=== PATIENT | female | born 1950 | race American Indian/Alaskan Native ===

== ENCOUNTER 2019-01-21 16:14 | Emergency (ER) | payer BC ==
[2019-01-21 16:23] VITALS: TEMP 98.2; O2SAT 999
--- NOTE | 2019-01-21 16:51 | C.PDOC ---
History Of Present Illness 68yo F with PMH of HTN, back pain here today for elevated blood pressure readings at home. She has been taking her blood pressure at home and got readings in the 190s for the last week. She's been controlling it by taking an extra dose of her clonidine 0.2, per her PMD. However, for the last two days, even with the extra medication, her BP has stayed elevated. Today, her home measurement showed SBP in the 200s so she came in. Denies headache, chest pain, palpitations, abdominal pain, nausea, vomiting, numbness, tingling, dizziness, lightheadedness. She does complain of ongoing sciatic pain on the R, worsening on walking. She is concerned the prolonged pain is raising her blood pressure. She's compliant with her three home meds of clonidine, carvedilol, diltiazem. <Evie Santa - Last Filed: 01/21/19 16:40> Patient seen and examined. Agree with history as documented. <Marina Garza - Last Filed: 01/22/19 01:45> History Per: Patient Onset/Duration Of Symptoms: Days Associated Symptoms: denies: Chest Pain, Dyspnea, Dizziness, Blurred Vision, Focal Weakness, Headache Additional History Per: Family <Evie Santa - Last Filed: 01/21/19 16:40> <Marina Garza - Last Filed: 01/22/19 01:45> Chief Complaint (Nursing): High Blood Pressure Past Medical History Reviewed: Historical Data, Nursing Documentation, Vital Signs Vital Signs: Last Vital Signs Temp 98.2 F 01/21/19 16:21 Pulse 66 01/21/19 16:21 Resp 20 01/21/19 16:21 BP 215/85 H 01/21/19 16:21 Pulse Ox 999 H 01/21/19 16:21 Primary Care Provider: Jacinto Prasad - Medical History PMH: HTN Family History: States: Unknown Family Hx - Social History Hx Tobacco Use: Yes Hx Alcohol Use: No Hx Substance Use: No - Immunization History Hx Tetanus Toxoid Vaccination: No Hx Influenza Vaccination: No Hx Pneumococcal Vaccination: No <Evie Santa - Last Filed: 01/21/19 16:40> Vital Signs: Last Vital Signs Temp 98.2 F 01/21/19 16:21 Pulse 64 01/21/19 18:32 Resp 17 01/21/19 18:32 BP 160/79 H 01/21/19 18:32 Pulse Ox 999 H 01/21/19 18:43 <Marina Garza - Last Filed: 01/22/19 01:45> Review Of Systems Constitutional: Negative for: Fever, Chills, Sweats, Weakness, Malaise Eyes: Negative for: Vision Change ENT: Negative for: Ear Pain, Nose Pain Cardiovascular: Negative for: Chest Pain, Palpitations, Edema, Light Headedness Respiratory: Negative for: Cough, Shortness of Breath, Wheezing Gastrointestinal: Negative for: Nausea, Vomiting, Abdominal Pain, Diarrhea, Constipation Genitourinary: Negative for: Dysuria, Frequency, Incontinence Neurological: Negative for: Weakness, Numbness, Confusion, Altered Mental Status, Dizziness Psych: Negative for: Anxiety, Depression <Evie Santa - Last Filed: 01/21/19 16:40> Physical Exam - Physical Exam Appears: Well, No Acute Distress Skin: Normal Color, Warm, Dry Head: Atraumatic, Normacephalic Eye(s): bilateral: PERRL, EOMI Oral Mucosa: Dry Cardiovascular: Rhythm Regular, No Edema, No Murmur Respiratory: Normal Breath Sounds, No Accessory Muscle Use, No Rales, No Rhonchi, No Wheezing Gastrointestinal/Abdominal: Normal Exam, Bowel Sounds, Soft, No Tenderness, Distention (obese) Back: No CVA Tenderness, No Vertebral Tenderness, No Straight Leg Raising (neg Well Leg Raise as well) Extremity: Normal ROM, No Tenderness, No Pedal Edema, No Calf Tenderness Pulses: Left Carotid: Normal, Right Carotid: Normal, Left Radial: Normal, Right Radial: Normal, Left Dorsalis Pedis: Normal, Right Dorsalis Pedis: Normal DTR: Bicep (R): 2+, Bicep (L): 2+, Knee (R): 2+, Knee (L): 2+ Neurological/Psych: Oriented x3, Normal Speech, Normal Cognition <Evie Santa Last Filed: 01/21/19 16:40> ED Course And Treatment ECG: Interpreted By Me, Viewed By Me ECG Rhythm: Sinus Bradycardia ECG Interpretation: Normal Interpretation Of ECG: sinus bradycardia @ 57 with LVH 2/2 uncontrolled HTN Rate From EC O2 Sat by Pulse Oximetry: 999 <Evie Santa Y - Last Filed: 01/21/19 16:40> - Laboratory Results Result Diagrams: 01/21/19 16:40 01/21/19 16:40 Lab Results: Total Bilirubin 0.3 mg/dL (0.2-1.3) 01/21/19 16:40 AST 22 U/L (14-36) 01/21/19 16:40 ALT 25 U/L (9-52) 01/21/19 16:40 Alkaline Phosphatase 60 U/L (38-126) 01/21/19 16:40 Total Protein 7.1 g/dL (6.3-8.3) 01/21/19 16:40 Albumin 4.0 g/dL (3.5-5.0) 01/21/19 16:40 Globulin 3.0 gm/dL (2.2-3.9) 01/21/19 16:40 Albumin/Globulin Ratio 1.3 (1.0-2.1) 01/21/19 16:40 Urine Color Yellow (YELLOW) 01/21/19 17:45 Urine Clarity Clear (Clear) 01/21/19 17:45 Urine pH 5.0 (5.0-8.0) 01/21/19 17:45 Ur Specific [place] 1.024 (1.003-1.030) 01/21/19 17:45 Urine Protein Negative mg/dL (NEGATIVE) 01/21/19 17:45 Urine Glucose (UA) Normal mg/dL (Normal) 01/21/19 17:45 Urine Ketones Negative mg/dL (NEGATIVE) 01/21/19 17:45 Urine Blood Negative (NEGATIVE) 01/21/19 17:45 Urine Nitrate Negative (NEGATIVE) 01/21/19 17:45 Urine Bilirubin Negative (NEGATIVE) 01/21/19 17:45 Urine Urobilinogen 2.0 mg/dL (0.2-1.0) H 01/21/19 17:45 Ur Leukocyte Esterase Neg Jens/uL (Negative) 01/21/19 17:45 Urine WBC (Auto) 1 /hpf (0-5) 01/21/19 17:45 Urine RBC (Auto) 1 /hpf (0-3) 01/21/19 17:45 Ur Squamous Epith Cells 5 /hpf (0-5) 01/21/19 17:45 Reassessment Condition: Improved (Decreased BP after Hydralizine. Patient remains asymptomatic.) <Marina Garza - Last Filed: 01/22/19 01:45> Medical Decision Making Medical Decision Making: - labs - EKG - CXR: no active disease - IVP hydralazine 10mg - monitor vitals 1726 re-eval. patient is still hypertensive without symptoms. - PO Ultram 50mg on repeat vitals check, BP has come down <Evie Santa - Last Filed: 01/21/19 16:40> Disposition Discussed With : Jacinto Prasad Comment: OK to take the Clonidine TID. Should see him in the office by Saturday to adjust Rx Doctor Will See Patient In The: Office - Disposition Disposition Time: 18:34 <Evie Santa - Last Filed: 01/21/19 16:40> <Marina Garza - Last Filed: 01/22/19 01:45> - Disposition Disposition: HOME/ ROUTINE Condition: IMPROVED Additional Instructions: You can take the medications via your new regimen until you see Dr. Prasad this week. The best thing for you is to lose weight. It will help with your sciatic pain and the strain on your heart. Please stop smoking. Forms: [employer] ([place]) - Clinical Impression Clinical Impression: Hypertensive urgency - PA / [employer] / Resident Statement / has reviewed & agrees with the documentation as recorded. / has examined the patient and agrees with the treatment plan. <Evie Santa - Last Filed: 01/21/19 16:40>
--- NOTE | 2019-01-21 17:25 | RAD ---
Date of service: 01/21/2019 HISTORY: hypertensive urgency COMPARISON: No prior. FINDINGS: LUNGS: No active pulmonary disease. PLEURA: No significant pleural effusion identified, no pneumothorax apparent. CARDIOVASCULAR: No atherosclerotic calcification present Normal. OSSEOUS STRUCTURES: No significant abnormalities. VISUALIZED UPPER ABDOMEN: Normal. OTHER FINDINGS: None. IMPRESSION: No active disease.
[2019-01-21 17:53] LABS: SQUAMOUS EPITHIAL 5 /hpf (0-5); URINE BILIRUBIN NEGATIVE (NEGATIVE); URINE BLOOD NEGATIVE (NEGATIVE); URINE CLARITY Clear (Clear); URINE COLOR Yellow (YELLOW); URINE GLUCOSE (UA) NORMAL (Normal); URINE LEUKOCYTE ESTERASE NEG Leu/uL (Negative); URINE PROTEIN NEGATIVE (NEGATIVE)
[2019-01-21 17:54] LABS: BASO # 0.1 K/uL (0.0-0.2); BASO % 0.9 % (0.0-2.0); EOS # 0.1 K/uL (0.0-0.7); EOS % 1.9 % (0.0-4.0); LYMPH # 2.1 K/uL (1.0-4.3); LYMPH % 37.7 % (20.0-40.0); MEAN CELL VOLUME 87.9 fL (81.0-99.0); MEAN CORPUSCULAR HEMOGLOBIN 29.4 pg (27.0-31.0); MEAN CORPUSCULAR HGB CONC 33.5 g/dL (33.0-37.0); MEAN PLATELET VOLUME 9.4 fL (7.2-11.7); MONO # 0.4 K/uL (0.0-0.8); MONO % 7.9 % (0.0-10.0); NEUT # 2.9 K/uL (1.8-7.0); NEUT % 51.6 % (50.0-75.0); NRBC % 0.1 % (0.0-2.0); RBC 4.42 Mil/uL (3.80-5.20); RED CELL DISTRIBUTION WIDTH 13.6 % (11.5-14.5); WHITE BLOOD COUNT 5.7 K/uL (4.8-10.8)
[2019-01-21 18:12] LABS: ALB/GLOB RATIO 1.3 (1.0-2.1); ALT/SGPT 25 U/L (9-52); AST/SGOT 22 U/L (14-36); BLOOD UREA NITROGEN 20 mg/dL (7-17); CALCIUM 9.1 mg/dl (8.6-10.4); GFR NON-AFRICAN AMERICAN > 60
[2019-01-21 18:34] VITALS: BP 160/79; PULSE 64; RESP 17
== END 2019-01-21 18:51 | disposition home or self-care (01) ==
LOC: C.ER 16:14
DX: I16.0 Hypertensive urgency (principal)
CPT/HCPCS: 71045; 80053; 81001; 85025; 96374; 99285; J0360